=== PATIENT | female | born 1985 | race Caucasian/White ===

== ENCOUNTER 2019-10-12 20:58 | Emergency (ER) | payer OTHER ==
[~2019-10-12] VITALS: Ht 170.2 cm; Wt 81.8 kg
[2019-10-12 21:47] LABS: HEMATOCRIT 42.2 % (37.0-47.0); HEMOGLOBIN 14.5 g/dl (12.0-16.0); IMMATURE GRANULOCYTES 0.4 % (0.0-5.0); MEAN CELL VOLUME 96.1 fL CALC (80.0-100.0); MEAN CORPUSCULAR HGB CONC 34.4 g/L CALC (32.0-36.0); NEUT# 10.93 thou/uL (2.00-7.15); RED BLOOD COUNT 4.39 mill/uL (4.20-5.60); RED CELL DISTRI WIDTH 12.6 % (11.5-15.5)
[2019-10-12] MEDS ORDERED: FLUOXETINE10 M2 PO (22:06)
[2019-10-12] MEDS ORDERED: PHENTERMINE37.5 MG PO (22:06)
[2019-10-12] MEDS ORDERED: XANAX0.25 MG PO (22:06)
[2019-10-12 22:21] LABS: MYOGLOBIN 84 ng/mL (0 - 62)
[2019-10-12] MEDS ORDERED: MECLIZINE25 MG PO (23:30)
[2019-10-12 23:45] VITALS: BP 142/75
== END 2019-10-12 23:44 | disposition home or self-care (01) | DRG 149 ==
LOC: ED 20:58
PROVIDERS: Family Medicine
DX: H81.12 Benign paroxysmal vertigo, left ear (principal); F17.210 Nicotine dependence, cigarettes, uncomplicated